=== PATIENT | female | born 1935 ===

== ENCOUNTER 2018-08-23 09:47 | Outpatient (CLI) | payer OTHER ==
[~2018-08-23] VITALS: Ht 162.6 cm; Wt 61.2 kg
[2018-08-23] MEDS ORDERED: LIPO-FLAVONOID1 EACH PO (11:58)
[2018-08-23] MEDS ORDERED: FLONASE16 GM NASAL (11:58)
== END 2018-08-23 10:10 | disposition home or self-care (01) ==
LOC: OFIC 805 09:47
DX: F03.90 Unspecified dementia, unspecified severity, without behavioral disturbance, psychotic disturbance, mood disturbance, and anxiety (principal); H91.8X3 Other specified hearing loss, bilateral; H61.23 Impacted cerumen, bilateral; R42 Dizziness and giddiness; J31.0 Chronic rhinitis

== ENCOUNTER 2019-01-12 12:43 | Emergency (ER) | payer OTHER ==
[~2019-01-12] VITALS: Ht 167.6 cm; Wt 59.0 kg
[~2019-01-12 12:43] MED LIST: FLONASE16 GM NASAL; LIPO-FLAVONOID1 EACH PO
[2019-01-12] MEDS ORDERED: ZOLOFT50 MG PO (13:00)
[2019-01-12] MEDS ORDERED: LIPITOR20 MG PO (13:00)
[2019-01-12] MEDS ORDERED: AZOR 5-20 MG T1 EACH PO (13:00)
== END 2019-01-12 21:49 | disposition home or self-care (01) ==
LOC: ER 12:43
DX: K59.09 Other constipation (principal); R10.84 Generalized abdominal pain

== ENCOUNTER 2019-01-26 10:55 | Outpatient (CLI) | payer OTHER ==
[~2019-01-26 10:55] MED LIST changes: +AZOR 5-20 MG T1 EACH PO; +LIPITOR20 MG PO; +ZOLOFT50 MG PO
== END 2019-01-26 10:58 | disposition home or self-care (01) ==
LOC: RAD 10:55
DX: M54.5 Low back pain (principal); I11.9 Hypertensive heart disease without heart failure